=== PATIENT | female | born 1995 | race Caucasian/White ===

== ENCOUNTER 2020-03-08 23:13 | Day surgery (SDC) | payer SELFPAY ==
[2020-03-08 23:57] VITALS: BP 130/65; TEMP 98.8; BMI 28.3
[2020-03-09] MEDS ORDERED: hydrALAZINE 20 MG/ML VIAL SLOW IVP PRN (00:10)
--- NOTE | 2020-03-09 00:19 | PDOC.FPROB ---
FMR OB H&P: HPI - History of Present Illness Chief Complaint: LOF Indentification: 24yo @ 36.2 History of Present Illness: 24yo @ 36.2 complicated by A1GDM presents for LOF. Onset of small volume LOF at 1500 yesterday. Has had intermittent LOF since then, usually after using the restroom and having small volume LOF afterwards. Denies ctx/cramping, VB, VD. Endorses good movement. Denies CP, SOB, dysuria, hematuria, vision changes, MUELLER. Last intercourse 2 days ago. 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 - Family History Family History: Denies FMR OB H&P: Medications - Current Home Medications: Medication Instructions Recorded Confirmed Type Omeprazole Magnesium [Prilosec] 10 mg PO DAILY 03/08/20 03/08/20 History Allergies/Adverse Reactions: Allergies Allergy/AdvReac Type Severity Reaction Status Date / Time No Known Drug Allergies Allergy Verified 03/08/20 23:47 FMR OB H&P: ROS - Review of Systems General: denies: fever/chills Eyes: denies: vision changes, scotomas ENT: denies: nasal congestion, rhinorrhea, sore throat Cardiovascular: denies: chest pain, palpitation Respiratory: denies: cough, congestion, shortness of breath Gastrointestinal: denies: abdominal pain, nausea, vomiting Genitourinary (Female): reports: other (LOF). denies: dysuria, hematuria, vaginal discharge, contractions Musculoskeletal: denies: pain Integumentary: denies: rash FMR OB H&P: Vital Signs - Maternal Vital signs: Vital Signs - First Documented Temp Pulse Resp BP 98.8 F 85 18 130/65 03/08/20 23:44 03/08/20 23:44 03/08/20 23:44 03/08/20 23:44 - Heart Tones Baseline: 130 Variability: moderate Acceleration: present Deceleration: absent Category: category 1 [place] contractions every: Intermittent on monitor, not felt by patient FMR OB H&P: Physical Exam - Physical Exam General: NAD, awake, alert and oriented HEENT: EOMI, MMM Neck: supple, trachea midline Heart: RRR, normal S1/S2, no murmurs/rubs/gallops, pulses present, no edema General: CTAB, no respiratory distress, good air movement, no rales/rhonchi, no wheezing Abdomen: soft, gravid, non-tender, bowel sound present Musculoskeletal: FROM in all four extremities Neurological: no focal deficit Psychiatric: intact recent and remote memory, good judgement and insight, normal mood and affect - Pelvic Exam Cervix: no blood Deviation from normal: Spec exam closed cervix. Physiologic discharge, no pooling/valsalva LOF SVE: /2 by RN FMR OB H&P: A/P - Problem List (1) Current Visit: Yes Status: Acute Disposition: 24yo @ 36.2 complicated by A1GDM presents for LOF. #, SIUP, concern for SROM - Intermittent LOF throughout yesterday, mainly after urination - SVE / - FHT reassuring, intermittent ctx on monitor, not felt by patient - Spec exam with physiologic discharge, no pooling or LOF with valsalva - Amnisure collected and negative #A1GDM - aware #A-, antibody negative - aware, Rhogam if indicated PCP: Rosaline Dispo: Reassuring FHT. No evidence of labor. No evidence of PPROM with negative spec exam and amnisure. Discussed findings with patient. Discharged with labor precautions. Patient voiced understanding and agreement. All questions answered. Discussion: Date/Time: 03/09/2016 This H&P was discussed with Dr. Brown and agrees with the above documentation and plan.
[2020-03-09 00:36] LABS: Amnisure Test No Membranes Rupture (No Rupture)
[2020-03-09 00:39] LABS: Amnisure Internal Control QC ACCEPTABLE (ACCEPTABLE)
[2020-03-09] MEDS ORDERED: Butorphanol Tartrate 1 MG/ML VIAL ONE (00:56)
--- NOTE | 2020-03-09 00:56 | PDOC.BPN ---
- Brief Progress Note Encounter Date: 03/09/20 Encounter Time: 00:55 As we were discussing discharge with patient. Starks demonstrated regular ctx q2- 3min. Minimally felt by patient. Due to and ctx regurally on toco, will observe for 2 additional hours, recheck SVE, 1L LR and stadol to r/o labor. Patient voiced understanding and agreement. This H&P was discussed with Dr. Brown and agrees with the above documentation and plan.
[2020-03-09] MEDS ORDERED: Butorphanol Tartrate 1 MG/ML VIAL SLOW IVP SCH (01:00)
[2020-03-09] MEDS: Lactated Ringer's 1,000 ML IV SCH ×2 (01:05→01:35)
--- NOTE | 2020-03-09 01:05 | HP ---
TIME: 0045 hours. TIME OF EVALUATION: 0030 hours. LOCATION: Labor and Delivery. Patient of Dr. Lemus. CHIEF COMPLAINT: Possible leakage of fluid at 36 weeks and 2 days. HISTORY OF PRESENT ILLNESS: This is a 24-year-old, G2, P1 with a history of gestational diabetes that is diet controlled with possible leakage of fluid at about 1500 hours, yesterday 03/08. She stated she had a small leakage of fluid, possibly then, but denies any large gush or persistence. She has good movement and denies any vaginal bleeding. She denies any recent trauma. REVIEW OF SYSTEMS: GENERAL: No sick contacts. No general malaise. RESPIRATORY: No shortness of breath. CARDIOVASCULAR: No chest pain. GI: No constipation or diarrhea that is unusual. EXTREMITIES: No unusual swelling or pain in the lower extremities. OB HISTORY: She is a G2, P1 with a previous vaginal delivery. PAST MEDICAL HISTORY: Negative. MEDICATIONS: Include vitamins. PAST SURGICAL HISTORY: Noncontributory. SOCIAL HISTORY: Negative for alcohol, tobacco, or drug use. PHYSICAL EXAMINATION: VITAL SIGNS: Her blood pressure is 130/65, pulse is 85, temperature is 98.8, and respirations are 18 and nonlabored. GENERAL: She is in no acute distress. ABDOMEN: Soft, nontender, and gravid and size consistent with dates. PELVIC: Cervix is 1 cm dilated, 75% effaced, -2 station with no gross evidence of leakage. On sterile speculum exam performed by Dr. Maravilla, there is no pooling and no loss of fluid with maneuvers. LABORATORY DATA: On laboratory assessment, her AmniSure was collected and it was negative. On external monitoring, the heart rate was reviewed by me and is reactive with moderate variability. There is no evidence of contractions on tocodynamometer. ASSESSMENT: This is a 24-year-old, G2, P1, at 36 weeks and 2 days with history of gestational diabetes with possible leakage of fluid, but the exam and laboratory evidence do not confirm leakage. Exam and laboratory data support the fact that she is still intact. The heart rate is reassuring. PLAN: 1. Reassurance given. 2. Not likely to be ruptured. 3. The patient was told to keep her followup appointment. Job ID: [id number]
--- NOTE | 2020-03-09 02:37 | PDOC.BPN ---
<Isaiah Maravilla - Last Filed: 03/09/20 02:33> - Brief Progress Note Encounter Date: 03/09/20 Encounter Time: 02:33 Patient given 1L NS. Declined Stadol. Feeling ctx more but still resting comfortably. No concerns. FHT with baseline 130, accels, no deccels, ctx q2-3min regular. 24yo @ 36.2 complicated by A1GDM presents for LOF. #, SIUP, negative SROM, r/o labor - Intermittent LOF throughout yesterday, mainly after urination - SVE /-2 @ presentation - FHT reasurring, ctx initially intermittent but now q2-3min since approx midnight - Repeat SVE @ 0215 /-2 - feeling ctx more - Amnisure and spec exam negative for ROM - Will continue to obs until the morning, repeat SVE in AM to determine if in labor #A1GDM - aware #A-, antibody negative - aware, Rhogam if indicated PCP: Rosaline Dispo: Reassuring FHT. Continues to have regular ctx q2-3 on toco and beginning to feel more. Negative for SROM. SVE 1cm->2cm. Will observe overnight and recheck SVE in AM to determine if in labor. Discussed plan with patient who voiced understanding and agreement. This H&P was discussed with Dr. Brown and agrees with the above documentation and plan. <Arnoldo Brown - Last Filed: 03/09/20 05:58> - Brief Progress Note OBGYN Faculty: WE will observe due to very slight cervical change, but with CTX. Recheck in AM.I have reviewed this with the patient as well.
--- NOTE | 2020-03-09 06:45 | PDOC.BPN ---
- Brief Progress Note DISCHARGE NOTE AND EVAL APU2 Patient was observed all night. I have seen her at bedside. S. She is doing well, no VB, no LOF, good FM...stilll feels some CTX. O. BPs wnl last CX by Ana RN: -/still high EXTERNAL MONITORING: Reactive. There still are some CTX but they are spacing out. Assessment and plan: Threatened PTL at 36 weeks...stable for DC. CTXs reviewed with her. She has an appoitment tomorrow with Dr quesada. L&D info given. I have sent Dr quesada a tiger text update.
[2020-03-09] MEDS ORDERED: FLU VACC QS2020-21(6MOS UP)/PF 60 MCG/0.5 ML SYRINGE IM ONE (09:00)
--- NOTE | 2020-03-09 11:54 | HP ---
ADDENDUM: After the cervical exam that was performed, the patient actually started krissy. She states that they are mild, but they are being picked up on the tocodynamometer about every 2 minutes or so. Because she is 36 weeks, I do not feel comfortable sending her home right now. I have discussed this with her. Our plan is to keep her for at least 2 hours and we will give her some IV hydration and 1 Stadol for some sedation and see if that helps relax her uterus a bit. We will recheck in 2 hours and if there is no significant change, then we can send her home, but we want to be conservative because of her gestational age. I have explained this to the patient and her partner and they agree with the plan of observation. Job ID: [id number]
== END 2020-03-09 07:25 | disposition home health service (06) ==
LOC: L&D/OP 23:13
PROVIDERS: ATTEND Obstetrics & Gynecology
DX: O47.03 False labor before 37 completed weeks of gestation, third trimester (principal); O99.891 Other specified diseases and conditions complicating pregnancy; N89.8 Other specified noninflammatory disorders of vagina; O24.410 Gestational diabetes mellitus in pregnancy, diet controlled; Z3A.36 36 weeks gestation of pregnancy
CPT/HCPCS: 84112; 96360; 96361; 99285; J0595

== ENCOUNTER 2020-03-24 09:04 | Outpatient (CLI) | payer BC ==
[2020-03-24 22:10] LABS: SARS-CoV-2 MS2 Positive; SARS-CoV-2 N Gene Negative; SARS-CoV-2 S Gene Negative; SARS-CoV-2 by NAA Not Detected (NotDetected); SARS-CoV-2 orf1ab Negative
== END 2020-03-24 09:05 | disposition home or self-care (01) ==
LOC: LABBT 09:04
PROVIDERS: ATTEND Obstetrics & Gynecology
DX: Z01.812 Encounter for preprocedural laboratory examination (principal); Z20.822 Contact with and (suspected) exposure to COVID-19
CPT/HCPCS: 87635; U0003

== ENCOUNTER 2020-03-26 20:57 | Day surgery (SDC) | payer BC ==
[2020-03-26 21:33] VITALS: BMI 28.3
[2020-03-26] MEDS ORDERED: hydrALAZINE 20 MG/ML VIAL SLOW IVP PRN (22:10)
--- NOTE | 2020-03-27 07:45 | PRG ---
DATE OF SERVICE: 03/26/2020 PRIMARY OB: Dr. Donovan Lemus. CHIEF COMPLAINT: Abdominal pain. HISTORY OF PRESENT ILLNESS: The patient is a 25-year-old G2, P1 female with an intrauterine at 38 weeks and 4 days, presenting to Labor and Delivery with 1-day history of uterine contractions that was worsening this evening around 7 p.m. The patient reports her contractions have become more frequent. They cannot say how often she is feeling numb. She reports that she has an appointment tomorrow morning with Dr. Velásquez. She denies any vaginal bleeding or leakage of fluid. She reports good movement. She denies fever, cough, headache, chest pain, shortness of breath, nausea, vomiting, diarrhea, or constipation. She denies hip problems, knee problems, muscle weakness. She denies any new rashes. She denies vaginal bleeding, leakage of fluid, urinary urgency, or frequency. Patient reports having some mucousy discharge earlier in the day. PAST MEDICAL HISTORY: A1 diabetes. PAST SURGICAL HISTORY: Tonsillectomy. ALLERGIES: NO KNOWN DRUG ALLERGIES. MEDICATIONS: vitamins. SOCIAL HISTORY: Denies drug, alcohol, or tobacco use. OB LABS: Blood type is A negative. Antibody screen rubella immune. Hepatitis B surface antigen is negative. RPR is negative. HIV is nonreactive. The patient received RhoGAM on 01/29/2020. REVIEW OF SYSTEMS: Per HPI. PHYSICAL EXAMINATION: VITAL SIGNS: Blood pressure is 128/67, heart rate of 80, respiratory rate of 20, temperature 97.8. GENERAL: She appears to be in no acute distress. She is resting comfortably in bed and very pleasant to interact with. HEENT: Head is normocephalic and atraumatic. LUNGS: Clear to auscultation bilaterally. HEART: Has regular rate and rhythm. ABDOMEN: Gravid, soft, nontender. EXTREMITIES: Nontender, nonedematous. CERVICAL EXAM: Per nursing staff is 2, 50%, very posterior. heart tracing shows the fetus with a baseline in the 130s with moderate long-term variability, positive 15 x 15 accelerations, no decelerations. Contraction is very irregular, every 1 minute to 3 minutes, not all felt by the patient. ASSESSMENT AND PLAN: The patient is a 25-year-old G2, P1 female with an intrauterine at 38 weeks and 4 days, having contractions, mild and nonpainful, with no evidence of active labor. The patient did express to live about 30 minutes from the hospital that they have family waiting to take her home. The patient was given the option to go home with labor precautions or to stay for 2 hours to be reexamined. The patient was comfortable to go home if her provider said it was okay. After communicating with Dr. Lemus, her primary OB provider, the patient was discharged home with term labor precautions. She has followup tomorrow morning with him. The fetus has a category 1 tracing and reactive NST. Job ID: [id number]
== END 2020-03-26 22:12 | disposition home or self-care (01) ==
LOC: EEVIPCON 20:57 → L&D/OP 20:57
PROVIDERS: ATTEND Obstetrics & Gynecology
DX: O47.1 False labor at or after 37 completed weeks of gestation (principal); O24.410 Gestational diabetes mellitus in pregnancy, diet controlled; Z3A.38 38 weeks gestation of pregnancy
CPT/HCPCS: 99282

== ENCOUNTER 2020-03-27 10:05 | Inpatient (IN) | payer BC ==
[2020-03-27] MEDS ORDERED: Misoprostol 200 MCG TAB PR PRN (10:49)
[2020-03-27] MEDS ORDERED: Lidocaine 1% (PF) 30 ML VIAL SC PRN (10:49)
[2020-03-27] MEDS ORDERED: Zolpidem Tartrate 5 MG TAB PO PRN ×2 (10:49→19:26)
[2020-03-27] MEDS ORDERED: hydrALAZINE 20 MG/ML VIAL SLOW IVP PRN ×2 (10:49→19:26)
[2020-03-27] MEDS ORDERED: Ondansetron PF 4 MG/2 ML Vial IVP PRN ×3 (10:49→19:26)
[2020-03-27] MEDS ORDERED: HYDROcodone/Acetaminophen 5/325 mg Tablet PO PRN ×2 (10:49)
[2020-03-27] MEDS ORDERED: Promethazine HCl 25 MG/ML VIAL IM PRN ×2 (10:49→11:56)
[2020-03-27] MEDS ORDERED: Ibuprofen 800 MG TAB PO PRN (10:49)
[2020-03-27] MEDS ORDERED: Butorphanol Tartrate 1 MG/ML VIAL SLOW IVP PRN (10:49)
[2020-03-27] MEDS ORDERED: Docusate 100 MG CAP PO PRN (10:49)
[2020-03-27] MEDS ORDERED: Acetaminophen 500 MG TAB PO PRN (10:49)
[2020-03-27] MEDS ORDERED: Diphenoxylate HCl/Atropine Tablet PO PRN ×2 (10:49)
[2020-03-27] MEDS ORDERED: Lactated Ringer's 1,000 ML IV SCH (10:49)
[2020-03-27] MEDS ORDERED: Misoprostol 100 MCG TAB VAG SCH (10:49)
[2020-03-27 11:03] VITALS: BMI 28.3
[2020-03-27] MEDS ORDERED: Fentanyl 4 mcg/Bup 0.1% Cadd 100 ML ONE (11:13)
[2020-03-27 11:26] LABS: Hemoglobin 12.9 g/dL (12.0-16.0); Mean Corpuscular HGB CONC 32.6 g/dL (32.0-36.0); Mean Corpuscular Hemoglobin 27.4 pg (27.0-31.0); Mean Corpuscular Volume 83.9 fL (78.0-98.0); Mean Platelet Volume 8.1 fL (7.4-10.4); Platelet Count 299 thou/uL (130-400); Red Blood Cell (RBC) Count 4.73 mill/uL (4.20-5.40); White Blood Cell (WBC) Count 15.6 thou/uL (4.8-10.8)
[2020-03-27] MEDS ORDERED: Bupivacaine HCl 0.25%/Epi 0.0005/PF 10 ML VIAL FS ONE (11:33)
[2020-03-27 11:45] LABS: Syphilis Antibody Nonreactive (Nonreactive); Syphilis Antibody Index 0.04 S/CO (<1.00 Non-Reactive)
[2020-03-27 11:46] LABS: HBSAg Index 0.29 S/CO (0-0.99); Hep B Surf Ag Non-Reactive S/CO (NonReactive)
[2020-03-27] MEDS ORDERED: diphenhydrAMINE 50 MG/ML VIAL IVP PRN (11:56)
[2020-03-27] MEDS ORDERED: Acetaminophen 325 MG TAB PO PRN ×2 (11:56→19:34)
[2020-03-27] MEDS ORDERED: Naloxone HCl 0.4 mg/ml Vial IVP PRN ×2 (11:56)
[2020-03-27] MEDS ORDERED: Lactated Ringer's 500 ML IV PRN (11:56)
[2020-03-27] MEDS ORDERED: ePHEDrine 50 MG/ML VIAL SLOW IVP PRN (11:56)
[2020-03-27] MEDS ORDERED: Fentanyl 4 mcg/Bupivacaine 0.1% Cassette 100 ML EPIDURAL SCH (12:00)
[2020-03-27] MEDS ORDERED: Communication Order-Pharmacy FS SCH (12:00)
[2020-03-27] MEDS: NS w/ Oxytocin 30 units 500 ML IV SCH ×6 (12:39→23:25)
[2020-03-27] MEDS ORDERED: Adacel (T-DAP) 0.5 ML SYRINGE IM ONE (19:26)
[2020-03-27] MEDS ORDERED: Bisacodyl 10 MG SUPP PR PRN (19:26)
[2020-03-27] MEDS ORDERED: diphenhydrAMINE 25 MG CAP PO PRN (19:26)
[2020-03-27] MEDS ORDERED: Misoprostol 200 MCG TAB VAG PRN (19:26)
[2020-03-27] MEDS ORDERED: Milk Of Magnesia 30 ML UDCUP PO PRN (19:26)
[2020-03-27] MEDS ORDERED: Preparation H Ointment 28 GM TUBE PR PRN (19:26)
[2020-03-27] MEDS ORDERED: Lanolin Ointment 7 GM TUBE TOP PRN (19:26)
[2020-03-27] MEDS ORDERED: Benzocaine-Menthol 82.5 ML CAN TOP PRN (19:26)
[2020-03-27] MEDS ORDERED: NS / Oxytocin 40 units/1000ml 1,000 ML IV SCH (19:30)
[2020-03-27] MEDS: Docusate Calcium (SURFAK) 240 MG CAP PO SCH (23:22)
[2020-03-27] MEDS: Ibuprofen 800 MG TAB PO SCH (23:22)
[2020-03-28] MEDS: HYDROcodone/Acetaminophen 5/325 mg Tablet PO PRN ×2 (00:12→05:49)
[2020-03-28] MEDS ORDERED: HYDROcodone/Acetaminophen 5/325 mg Tablet PO PRN (00:15)
[2020-03-28] MEDS: Ibuprofen 800 MG TAB PO SCH ×3 (05:49→21:18)
[2020-03-28] MEDS: Docusate Calcium (SURFAK) 240 MG CAP PO SCH ×2 (08:29→21:18)
[2020-03-28] MEDS: Prenatal Vitamin 1 TAB PO SCH (08:29)
[2020-03-28] MEDS: Ferrous Sulfate 325 MG TAB PO SCH ×2 (08:30→16:24)
[2020-03-28] MEDS ORDERED: FLU VACC QS2020-21(6MOS UP)/PF 60 MCG/0.5 ML SYRINGE IM ONE (09:00)
[2020-03-29] MEDS: Ibuprofen 800 MG TAB PO SCH (05:08)
[2020-03-29] MEDS: Docusate Calcium (SURFAK) 240 MG CAP PO SCH (08:58)
[2020-03-29] MEDS: Prenatal Vitamin 1 TAB PO SCH (08:58)
[2020-03-29 08:59] VITALS: BP 113/53; TEMP 97.5
== END 2020-03-29 10:00 | disposition home or self-care (01) | DRG 807 ==
LOC: L&D 10:05 → 3SW 22:49
PROVIDERS: ADMIT Obstetrics & Gynecology; ATTEND Obstetrics & Gynecology
PROC: 10E0XZZ Delivery of Products of Conception, External Approach (ICD-10-PCS; principal; 2020-03-27)
PROC: 0KQM0ZZ Repair Perineum Muscle, Open Approach (ICD-10-PCS; 2020-03-27)
DX: O70.1 Second degree perineal laceration during delivery (principal); Z37.0 Single live birth; Z3A.38 38 weeks gestation of pregnancy; Z20.822 Contact with and (suspected) exposure to COVID-19
CPT/HCPCS: 36415; 51702; 85027; 86780; 86850; 86870; 86900; 86901; 87340; 87635; 99282; J2590; U0003